=== PATIENT | female | born 1955 | race Caucasian/White ===

== ENCOUNTER 2021-10-24 09:30 | Observation (INO) | payer OTHER ==
[~2021-10-24] VITALS: Ht 165.1 cm; Wt 52.2 kg
[2021-10-24 09:43] VITALS: BP_SYST 160
--- NOTE | 2021-10-24 10:15 | NUR ---
ER at bedside examining patient.
--- NOTE | 2021-10-24 10:29 | NUR ---
pt presents to the ER bib caregiver from home. CC Sharp chest pain. 08/20 Pt notes onset 4 days ago pain localized to center anterior chest. Pt denies NVD, pt respirations even and unlabored. Open blister with eschcar no drainage to pad of left foot distal to pinky toe. Pt has swelling in left hand second digit with 3 rings. left posterior scapula with abrasion no broken skin. Past medical history Bi polar currently in manic state noted by caregiver who is bedside.
[2021-10-24] MEDS ORDERED: IBUPROFEN 600 MG TABLET PO ONE (10:45)
[2021-10-24 10:48] LABS: BASOPHILS % (AUTO) 0.3 % (0.0-2.0); EOSINOPHILS # (AUTO) 0.4 K/uL (0.0-0.4); EOSINOPHILS % (AUTO) 4.6 % (0.0-4.0); HEMATOCRIT 28.2 % (36-48); LYMPHOCYTES # (AUTO) 1.9 K/uL (1.0-5.5); LYMPHOCYTES % (AUTO) 21.8 % (20.5-51.5); MEAN CORPUSCULAR VOLUME 86 fL (79.0-98.0); MONOCYTES # (AUTO) 0.6 K/uL (0.0-1.0); MONOCYTES % (AUTO) 6.7 % (1.7-9.3); NEUTROPHILS # (AUTO) 5.9 K/uL (1.8-7.7); NEUTROPHILS % (AUTO) 66.6 % (40.0-70.0); PLATELET COUNT (AUTO) 370 K/uL (130-430); RED BLOOD CELL COUNT(AUTO) 3.29 MIL/uL (4.2-6.2); RED CELL DISTRIBUTION WIDTH 14.1 % (9.0-15.0); WHITE BLOOD COUNT (AUTO) 8.9 K/uL (4.8-10.8)
[2021-10-24] MEDS ORDERED: GABAPENTIN 300 MG CAPSULE PO ONE (11:00)
[2021-10-24 11:06] LABS: ANION GAP 10 (5-15); CALCIUM 9.8 mg/dL (8.4-11.0); CHLORIDE 106 mmol/L (98-107); CREATININE 1.41 mg/dL (0.55-1.30); GLUCOSE 143 mg/dL (70-99); SODIUM SERUM 141 mmol/L (136-145); UREA NITROGEN, BLOOD 60 mg/dL (8-21)
[2021-10-24 11:16] LABS: ALANINE AMINOTRANSFERASE 67 U/L (12-78); ALBUMIN 3.7 g/dL (3.4-4.8); ASPARTATE AMINOTRANSFERASE 99 U/L (10-37); TOTAL BILIRUBIN 0.3 mg/dL (0.0-1.0)
--- NOTE | 2021-10-24 11:22 | NUR ---
Pt exits back door and states was going to visit with a friends brother in the car. Pt redirected to room 8 for further care.
[2021-10-24 11:28] LABS: GFR AFRICAN AMERICAN 48 mL/min (>90)
[2021-10-24 11:29] LABS: POTASSIUM 2.9 mmol/L (3.5-5.1)
--- NOTE | 2021-10-24 11:34 | NUR ---
Critical lab results: K+ 2.9 and troponin 159. notified.
[2021-10-24] MEDS ORDERED: POTASSIUM CHLORIDE 20 MEQ TAB.PRT.SR PO ONE (11:45)
[2021-10-24] MEDS ORDERED: ASPIRIN 81 MG TAB.CHEW PO ONE (11:45)
[2021-10-24] MEDS ORDERED: LORazepam 2 MG/ML VIAL IVP ONE (12:00)
[2021-10-24] MEDS ORDERED: NACL 0.9% 1,000 ML IV ONE (12:00)
--- NOTE | 2021-10-24 12:03 | NUR ---
Admit bed requested Patient will be admitted to care of . Admitted to TELE unit. Diagnosis CHEST PAIN Inpatient (Yes or No) N Observation (Yes or No) Y Orientation concerns or request close to nursing station (Yes or No) N Covid Status PENDING On vent or bipap N Isolation requirements N Needs a sitter N From Home (Yes or if No enter name of facility) Y Requires Dialysis (Yes or No) N Med Rec Completed (Yes of No) PENDING
--- NOTE | 2021-10-24 12:39 | NUR ---
Pt provided food from caregiver. Pt ate 100% Denies NV, Pt is resting comfortably with gown on and cooperative.
--- NOTE | 2021-10-24 13:00 | NUR ---
Caregiver: Jenelle [phone] Nurse: Dave [phone]
--- NOTE | 2021-10-24 14:29 | NUR ---
# 20 gauge angiocath placed to right forearm. Use of asceptic technique. Opsite placed over site. Blood return noted. Blood for lab drawn from site. Flushed with 10 cc of normal saline. No evidence of infiltration noted. Patient tolerated well.
--- NOTE | 2021-10-24 14:31 | NUR ---
Pt reposititoned and IVF running. Pt without complaint states feeling calmer and tired at this time.
[2021-10-24] MEDS ORDERED: LIP20 PO (16:12)
[2021-10-24] MEDS ORDERED: FENO48TA8 PO (16:12)
[2021-10-24] MEDS ORDERED: FENO160 PO (16:12)
[2021-10-24] MEDS ORDERED: LISI40TA13 PO (16:23)
[2021-10-24] MEDS ORDERED: FAMO20TA8 PO ×2 (16:23→16:26)
[2021-10-24] MEDS ORDERED: GABA800T PO (16:23)
[2021-10-24] MEDS ORDERED: CLON0.5T4 PO (16:23)
[2021-10-24] MEDS ORDERED: NOR10 PO (16:23)
[2021-10-24] MEDS ORDERED: OXYB5TAB17 PO (16:23)
[2021-10-24] MEDS ORDERED: BACL10TA PO (16:23)
--- NOTE | 2021-10-24 16:55 | NUR ---
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
[2021-10-24 17:10] VITALS: BP_SYST 154
--- NOTE | 2021-10-24 17:10 | NUR ---
ADMISSION; PATIENT ADMITTED TO ROOM 112A. AAOX4 ABLE TO MAKE NEEDS KNOWN. DENIES PAIN OR DISTRESS AT THIS TIME. IV TO THE RFA 22 INTACT AND PATENT. EXPLAINED POC AND PATIENT VERBALIZED UNDERSTANDING. PADDED SIDE RAILS X3 DUE TO HX OF SEIZURE. LAST SEIZURE EPISODE PER PATIENT IS A MONTH AGO. BED IN LOW AND LOCK POSITION. CALL LIGHT AND BEDSIDE TABLE WITHIN REACH. STABLE CONDITION AT THIS TIME.
--- NOTE | 2021-10-24 17:25 | NUR ---
Patient will be admitted to care of Dr Valencia. Admitted to tele unit. Will go to room 112a. Belongings list completed. Complete and up to date summary report printed. SBAR report to be given at bedside with opportunity for questions.
[2021-10-24] MEDS ORDERED: clonazePAM 0.5 MG TABLET PO PRN (18:00)
[2021-10-24] MEDS ORDERED: BACLOFEN 10 MG TABLET PO PRN (18:00)
[2021-10-24] MEDS ORDERED: IBUP-1619 PO (18:02)
[2021-10-24] MEDS ORDERED: FENOFIBRATE 160 MG TABLET PO ONE (18:15)
[2021-10-24] MEDS ORDERED: lisinopriL 20 MG TABLET PO ONE (18:15)
[2021-10-24] MEDS ORDERED: FAMOTIDINE 20 MG TABLET PO ONE (18:15)
[2021-10-24] MEDS ORDERED: ATORVASTATIN 20 MG TABLET PO ONE (18:15)
[2021-10-24] MEDS ORDERED: amLODIPine BESYLATE 10 MG TABLET PO ONE (18:15)
[2021-10-24] MEDS ORDERED: IBUPROFEN 600 MG TABLET PO PRN (18:15)
--- NOTE | 2021-10-24 18:55 | NUR ---
CLOSING NOTES: PATIENT RESTING IN BED QUIETLY. ALL NEEDS MET. STABLE CONDITION AT THIS TIME.
[2021-10-24 19:51] VITALS: BP_SYST 170
[2021-10-24] MEDS: GABAPENTIN 400 MG CAPSULE PO SCH (21:08)
[2021-10-25 00:11] VITALS: BP_SYST 154
[2021-10-25 00:39] VITALS: BP_SYST 148
[2021-10-25 07:45] VITALS: BP_SYST 148
--- NOTE | 2021-10-25 07:45 | NUR ---
OPEN NOTE Patient is lying in bed comfortably. No signs of any chest pain,pain,sob,or any acute distress noted. RFA IV patent on SL. No s/s any infiltration noted. Patient able to ambulate to restroom. Call light within reach. All safety measures in place, side rails up. Bed is locked in lowest position. All needs met at this time, will continue to monitor.
[2021-10-25 08:20] LABS: BASOPHILS % (AUTO) 0.5 % (0.0-2.0); EOSINOPHILS # (AUTO) 0.8 K/uL (0.0-0.4); EOSINOPHILS % (AUTO) 11.3 % (0.0-4.0); HEMATOCRIT 29.4 % (36-48); LYMPHOCYTES # (AUTO) 2.9 K/uL (1.0-5.5); LYMPHOCYTES % (AUTO) 41.4 % (20.5-51.5); MEAN CORPUSCULAR VOLUME 86 fL (79.0-98.0); MONOCYTES # (AUTO) 0.5 K/uL (0.0-1.0); MONOCYTES % (AUTO) 6.6 % (1.7-9.3); NEUTROPHILS # (AUTO) 2.8 K/uL (1.8-7.7); NEUTROPHILS % (AUTO) 40.2 % (40.0-70.0); PLATELET COUNT (AUTO) 378 K/uL (130-430); RED BLOOD CELL COUNT(AUTO) 3.41 MIL/uL (4.2-6.2); RED CELL DISTRIBUTION WIDTH 14.3 % (9.0-15.0)
[2021-10-25 08:47] LABS: CALCIUM 9.2 mg/dL (8.4-11.0); CREATININE 1.01 mg/dL (0.55-1.30); POTASSIUM 3.3 mmol/L (3.5-5.1)
[2021-10-25] MEDS ORDERED: FENOFIBRATE 160 MG TABLET PO SCH (09:00)
[2021-10-25] MEDS ORDERED: amLODIPine BESYLATE 10 MG TABLET PO SCH (09:00)
[2021-10-25] MEDS ORDERED: ATORVASTATIN 20 MG TABLET PO SCH (09:00)
[2021-10-25] MEDS ORDERED: lisinopriL 20 MG TABLET PO SCH (09:00)
[2021-10-25] MEDS ORDERED: FAMOTIDINE 20 MG TABLET PO SCH (09:00)
[2021-10-25 09:02] LABS: ALBUMIN 3.1 g/dL (3.4-4.8); THYROID STIMULATING HORMONE 1.85 uIu/mL (0.36-3.74); TOTAL BILIRUBIN 0.3 mg/dL (0.0-1.0)
[2021-10-25] MEDS: GABAPENTIN 400 MG CAPSULE PO SCH ×2 (09:46→13:04)
[2021-10-25] MEDS ORDERED: NITR50CA51 PO (09:58)
[2021-10-25] MEDS ORDERED: FAMO20TA8 PO (09:58)
[2021-10-25] MEDS ORDERED: ERGO400C2 (09:58)
[2021-10-25] MEDS ORDERED: CLON0.1T PO (09:58)
[2021-10-25] MEDS ORDERED: MIRA50TA PO (09:58)
[2021-10-25] MEDS ORDERED: CLI.05P TD (09:58)
[2021-10-25] MEDS ORDERED: FENO160 PO (09:58)
[2021-10-25 11:55] VITALS: BP_SYST 148
[2021-10-25 12:00] VITALS: BP_SYST 150
--- NOTE | 2021-10-25 12:15 | NUR ---
Patient Rounds Patient is room. No signs of any chest pain,pain,sob,or any acute distress noted. MD Ramos gave orders to Discharge. Patient made aware and started paperwork. 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 Call light within reach. All safety measures in place, side rails up. Bed is locked in lowest position. All needs met at this time, will continue to monitor.
--- NOTE | 2021-10-25 13:40 | NUR ---
Discharge Patient discharged home with caregiver. IV line discontinued. Arm band removed, telebox removed. Patient signed all paperwork and gave instructions for discharge care. Patient had no pain, no SOB, no distress upon living. All belongings taken with her.
[2021-10-25 16:06] VITALS: BP_SYST 147
== END 2021-10-25 17:26 | disposition home or self-care (01) ==
LOC: SED 09:30 → STU 15:51 → SMU 16:25 → STU 16:50
PROVIDERS: ADMIT Internal Medicine; ATTEND Internal Medicine
DX: R07.89 Other chest pain (principal); Z20.822 Contact with and (suspected) exposure to COVID-19; I21.4 Non-ST elevation (NSTEMI) myocardial infarction; I24.8 Other forms of acute ischemic heart disease; I12.9 Hypertensive chronic kidney disease with stage 1 through stage 4 chronic kidney disease, or unspecified chronic kidney disease; N18.30 Chronic kidney disease, stage 3 unspecified; F31.9 Bipolar disorder, unspecified; E87.6 Hypokalemia; G40.909 Epilepsy, unspecified, not intractable, without status epilepticus; Z87.891 Personal history of nicotine dependence; Z90.710 Acquired absence of both cervix and uterus; Z91.83 Wandering in diseases classified elsewhere; Z96.641 Presence of right artificial hip joint; Z79.899 Other long term (current) drug therapy
CPT/HCPCS: 96361; 96374; 80053 ×2; 85025 ×2; 84484 ×2; 36415 ×2; 93005 ×2; 71045; 73630; 99291; 87426; 80061; 83880; 84443; 93306; G0378 ×2; J2060

== ENCOUNTER 2021-11-12 21:09 | Inpatient (IN) | payer OTHER ==
[~2021-11-12] VITALS: Ht 165.1 cm; Wt 63.1 kg
[~2021-11-12 21:09] MED LIST: BACL10TA PO; CLI.05P TD; CLON0.1T PO; CLON0.5T4 PO; ERGO400C2; FAMO20TA8 PO; FENO160 PO; FENO48TA8 PO; GABA800T PO; IBUP-1619 PO; LIP20 PO; LISI40TA13 PO; MIRA50TA PO; NITR50CA51 PO; NOR10 PO; OXYB5TAB17 PO
[2021-11-12 21:10] VITALS: BP_SYST 138
[2021-11-12] MEDS ORDERED: NALOXONE HCL 2 MG/2 ML SYR (NARCAN) IVP ONE (21:45)
[2021-11-12] MEDS ORDERED: NALOXONE HCL 2 MG/2 ML SYR ONE (21:56)
[2021-11-12 22:13] LABS: BASOPHILS # (AUTO) 0.1 K/uL (0.0-0.2); BASOPHILS % (AUTO) 0.6 % (0.0-2.0); EOSINOPHILS # (AUTO) 0.4 K/uL (0.0-0.4); EOSINOPHILS % (AUTO) 3.9 % (0.0-4.0); HEMATOCRIT 29.4 % (36-48); LYMPHOCYTES # (AUTO) 2.5 K/uL (1.0-5.5); LYMPHOCYTES % (AUTO) 26.6 % (20.5-51.5); MEAN CORPUSCULAR VOLUME 85 fL (79.0-98.0); MONOCYTES # (AUTO) 0.6 K/uL (0.0-1.0); MONOCYTES % (AUTO) 6.6 % (1.7-9.3); NEUTROPHILS # (AUTO) 5.7 K/uL (1.8-7.7); NEUTROPHILS % (AUTO) 62.3 % (40.0-70.0); PLATELET COUNT (AUTO) 497 K/uL (130-430); RED BLOOD CELL COUNT(AUTO) 3.48 MIL/uL (4.2-6.2); RED CELL DISTRIBUTION WIDTH 14.3 % (9.0-15.0); WHITE BLOOD COUNT (AUTO) 9.2 K/uL (4.8-10.8)
[2021-11-12 22:34] LABS: ALANINE AMINOTRANSFERASE 64 U/L (12-78); ALBUMIN 3.8 g/dL (3.4-4.8); ANION GAP 8 (5-15); ASPARTATE AMINOTRANSFERASE 33 U/L (10-37); CALCIUM 9.7 mg/dL (8.4-11.0); CHLORIDE 104 mmol/L (98-107); GLUCOSE 111 mg/dL (70-99); POTASSIUM 3.7 mmol/L (3.5-5.1); TOTAL BILIRUBIN 0.2 mg/dL (0.0-1.0); UREA NITROGEN, BLOOD 41 mg/dL (8-21)
[2021-11-12 22:35] LABS: ACETAMINOPHEN < 1 ug/mL (1-30); ALCOHOL, BLOOD < 3 mg/dL (<10); GFR AFRICAN AMERICAN 49 mL/min (>90)
[2021-11-13] MEDS ORDERED: NACL 0.9% 1,000 ML IV ONE
[2021-11-13 00:50] LABS: BARBITURATE, URINE NEGATIVE (NEG <=200); BENZODIAZEPINE, URINE NEGATIVE (NEG <=150); CANNABINOID, URINE NEGATIVE (NEG <=50); COCAINE, URINE NEGATIVE (NEG <=150); METHAMPHETAMINES SCREEN,URINE NEGATIVE (NEG <=500); OPIATE, URINE NEGATIVE (NEG <=100); PHENCYCLIDINE SCREEN,URINE NEGATIVE (NEG <=25); UR TRICYCLIC ANTIDEPRESSANTS NEGATIVE (NEG <=300); URINE AMPHETAMINE NEGATIVE (NEG <=500); URINE METHADONE NEGATIVE (NEG <=200); URINE OXYCODONE SCREEN NEGATIVE (NEG <=100); URINE PROPOXYPHENE SCREEN NEGATIVE (NEG <=300)
[2021-11-13] MEDS ORDERED: HYDROcodone/ACETAMIN 5-325 MG TAB (NORCO/ VICODIN) PO PRN (02:45)
[2021-11-13] MEDS ORDERED: LORazepam 2 MG/ML VIAL IVP PRN (02:45)
[2021-11-13] MEDS ORDERED: ACETAMINOPHEN 325 MG TABLET PO PRN (02:45)
[2021-11-13] MEDS ORDERED: ONDANSETRON HCL 4 MG/2 ML VIAL IVP PRN (02:45)
[2021-11-13] MEDS ORDERED: INSULIN NPH 100 UNITS/ML 10 ML VIAL ONE (04:11)
[2021-11-13 04:20] VITALS: BP_SYST 158
[2021-11-13] MEDS: D5/0.45 NS 1,000 ML IV SCH ×2 (05:11→22:45)
[2021-11-13 08:27] LABS: BASOPHILS % (AUTO) 0.3 % (0.0-2.0); EOSINOPHILS # (AUTO) 0.5 K/uL (0.0-0.4); EOSINOPHILS % (AUTO) 6.3 % (0.0-4.0); HEMATOCRIT 32.4 % (36-48); LYMPHOCYTES # (AUTO) 3.3 K/uL (1.0-5.5); LYMPHOCYTES % (AUTO) 41.2 % (20.5-51.5); MEAN CORPUSCULAR VOLUME 85 fL (79.0-98.0); MONOCYTES # (AUTO) 0.6 K/uL (0.0-1.0); MONOCYTES % (AUTO) 7.1 % (1.7-9.3); NEUTROPHILS # (AUTO) 3.6 K/uL (1.8-7.7); NEUTROPHILS % (AUTO) 45.1 % (40.0-70.0); PLATELET COUNT (AUTO) 544 K/uL (130-430); RED CELL DISTRIBUTION WIDTH 14.5 % (9.0-15.0); WHITE BLOOD COUNT (AUTO) 7.9 K/uL (4.8-10.8)
[2021-11-13 08:52] LABS: ALBUMIN 3.4 g/dL (3.4-4.8); CALCIUM 9.3 mg/dL (8.4-11.0); CREATININE 0.97 mg/dL (0.55-1.30); PHOSPHORUS 3.8 mg/dL (2.7-4.5); POTASSIUM 3.6 mmol/L (3.5-5.1); TOTAL BILIRUBIN 0.3 mg/dL (0.0-1.0)
[2021-11-13 09:04] VITALS: BP_SYST 145
[2021-11-13 12:00] VITALS: BP_SYST 136
[2021-11-13] MEDS ORDERED: BALSAM PERU/CASTOR OIL 56.7 GM OINT...G. TP ONE (15:30)
[2021-11-13 16:00] VITALS: BP_SYST 128
[2021-11-13] MEDS: HYDROcodone/ACETAMIN 10-325 MG TAB PO PRN (18:25)
[2021-11-13 20:16] VITALS: BP_SYST 138
[2021-11-14 00:42] VITALS: BP_SYST 129
[2021-11-14 07:19] LABS: BASOPHILS % (AUTO) 0.6 % (0.0-2.0); EOSINOPHILS # (AUTO) 0.6 K/uL (0.0-0.4); EOSINOPHILS % (AUTO) 7.9 % (0.0-4.0); LYMPHOCYTES # (AUTO) 2.9 K/uL (1.0-5.5); LYMPHOCYTES % (AUTO) 39.5 % (20.5-51.5); MEAN CORPUSCULAR VOLUME 85 fL (79.0-98.0); MONOCYTES # (AUTO) 0.6 K/uL (0.0-1.0); MONOCYTES % (AUTO) 7.7 % (1.7-9.3); NEUTROPHILS # (AUTO) 3.2 K/uL (1.8-7.7); NEUTROPHILS % (AUTO) 44.3 % (40.0-70.0); PLATELET COUNT (AUTO) 518 K/uL (130-430); RED BLOOD CELL COUNT(AUTO) 3.66 MIL/uL (4.2-6.2); RED CELL DISTRIBUTION WIDTH 14.2 % (9.0-15.0); WHITE BLOOD COUNT (AUTO) 7.3 K/uL (4.8-10.8)
[2021-11-14 07:47] VITALS: BP_SYST 90
[2021-11-14 08:01] LABS: CALCIUM 8.9 mg/dL (8.4-11.0); CREATININE 0.95 mg/dL (0.55-1.30); POTASSIUM 3.5 mmol/L (3.5-5.1)
[2021-11-14] MEDS: D5/0.45 NS 1,000 ML IV SCH ×3 (08:45→20:56)
[2021-11-14] MEDS: HYDROcodone/ACETAMIN 10-325 MG TAB PO PRN ×2 (09:30→21:09)
[2021-11-14] MEDS: BALSAM PERU/CASTOR OIL 56.7 GM OINT...G. TP SCH (09:34)
[2021-11-14 12:00] VITALS: BP_SYST 92
[2021-11-14] MEDS: NORMAL SALINE 5 ML DISP.SYRIN IVF SCH ×2 (14:00→20:48)
[2021-11-14 16:00] VITALS: BP_SYST 97
[2021-11-14 20:00] VITALS: BP_SYST 156
[2021-11-14] MEDS: OLANZapine 2.5 MG TABLET PO SCH (20:57)
[2021-11-15] MEDS: D5/0.45 NS 1,000 ML IV SCH (05:21)
[2021-11-15] MEDS: NORMAL SALINE 5 ML DISP.SYRIN IVF SCH (05:21)
[2021-11-15 07:10] LABS: BASOPHILS % (AUTO) 0.5 % (0.0-2.0); EOSINOPHILS # (AUTO) 0.5 K/uL (0.0-0.4); EOSINOPHILS % (AUTO) 8.4 % (0.0-4.0); HEMATOCRIT 32.6 % (36-48); HEMOGLOBIN 10.9 g/dL (12.0-16.0); LYMPHOCYTES # (AUTO) 2.7 K/uL (1.0-5.5); LYMPHOCYTES % (AUTO) 46.7 % (20.5-51.5); MEAN CORPUSCULAR HEMOGLOBIN 28 pg (27-31); MEAN CORPUSCULAR HGB CONC 34 % (32-36); MEAN CORPUSCULAR VOLUME 85 fL (79.0-98.0); MONOCYTES # (AUTO) 0.4 K/uL (0.0-1.0); MONOCYTES % (AUTO) 7.5 % (1.7-9.3); NEUTROPHILS # (AUTO) 2.1 K/uL (1.8-7.7); NEUTROPHILS % (AUTO) 36.9 % (40.0-70.0); PLATELET COUNT (AUTO) 488 K/uL (130-430); RED BLOOD CELL COUNT(AUTO) 3.85 MIL/uL (4.2-6.2); RED CELL DISTRIBUTION WIDTH 13.9 % (9.0-15.0); WHITE BLOOD COUNT (AUTO) 5.8 K/uL (4.8-10.8)
[2021-11-15 07:38] VITALS: BP_SYST 149
[2021-11-15] MEDS: BALSAM PERU/CASTOR OIL 56.7 GM OINT...G. TP SCH (09:24)
[2021-11-15] MEDS: OLANZapine 2.5 MG TABLET PO SCH (09:24)
[2021-11-15 09:35] LABS: CALCIUM 9.1 mg/dL (8.4-11.0); CREATININE 1.02 mg/dL (0.55-1.30); PHOSPHORUS 4.3 mg/dL (2.7-4.5); POTASSIUM 3.8 mmol/L (3.5-5.1)
[2021-11-15] MEDS ORDERED: OLAN2.5T3 PO (09:52)
[2021-11-15 11:48] VITALS: BP_SYST 124
[2021-11-15 12:00] VITALS: BP_SYST 137
[2021-11-15] MEDS: HYDROcodone/ACETAMIN 10-325 MG TAB PO PRN (12:50)
== END 2021-11-15 13:00 | disposition home or self-care (01) | DRG 684 ==
LOC: SED 21:09 → SMU 11-13 02:43
PROVIDERS: ADMIT Preventive Medicine Preventive Medicine/Occupational Environmental Medicine; ATTEND Preventive Medicine Preventive Medicine/Occupational Environmental Medicine
DX: N17.0 Acute kidney failure with tubular necrosis (principal); N32.81 Overactive bladder; E55.9 Vitamin D deficiency, unspecified; E78.5 Hyperlipidemia, unspecified; I10 Essential (primary) hypertension; K21.9 Gastro-esophageal reflux disease without esophagitis; F99 Mental disorder, not otherwise specified; F03.90 Unspecified dementia, unspecified severity, without behavioral disturbance, psychotic disturbance, mood disturbance, and anxiety; Z20.822 Contact with and (suspected) exposure to COVID-19; D75.839 Thrombocytosis, unspecified; D64.9 Anemia, unspecified; Z88.8 Allergy status to other drugs, medicaments and biological substances; Z79.899 Other long term (current) drug therapy
CPT/HCPCS: 36415; 70450-TC; 76376; 80048; 80053; 80307; 82962; 83735; 84100; 85025; 87081; 93005; 96374; 99285; G0480; G0482; J1815; J2310